=== PATIENT | female | born 1955 | race Two or more races ===

== ENCOUNTER 2020-10-28 10:36 | Outpatient (CLI) | payer OTHER | END 2020-10-28 10:47 | disposition home or self-care (01) | LOC: SONOGRAMA 10:36 | PROVIDERS: ATTEND Surgery | DX: N60.11 Diffuse cystic mastopathy of right breast (principal); N60.12 Diffuse cystic mastopathy of left breast; R92.0 Mammographic microcalcification found on diagnostic imaging of breast ==